=== PATIENT | male | born 1970 | race Caucasian/White ===

== ENCOUNTER 2020-06-18 13:26 | Inpatient (IN) ==
[~2020-06-18 13:26] MED LIST: ZOSYN 3.375 GM x ONE DOSE over 30 miuntes IV
[2020-06-18] MEDS ORDERED: NS 0.9% 1000 ml BAG 1,000 ML IV ONE (14:06)
[2020-06-18 14:16] LABS: ABS Basophils 0.1 10^3/ul (0-0.2); ABS Lymphocytes 0.8 10^3/ul (1.0-4.8); ABS Monocytes 0.8 10^3/ul (0-0.8); ABS Neutrophils 15.8 10^3/ul (1.5-7.7); Eosinophil % 0.3 %; Hematocrit 38 % (42-52); Hemoglobin 12.9 g/dL (14.0-18.0); Lymphocyte % 4.5 %; Mean Corpuscular HGB Conc 34 g/dL (31-36); Mean Corpuscular Hemoglobin 28 pg (27-31); Mean Corpuscular Volume 84 fL (80-94); Mean Platelet Volume 8.1 fL (7.4-10.4); Platelet Count 595 10^3/uL (150-450); Red Blood Count 4.57 10^6 /uL (4.18-5.48); Red Cell Distribution Width 14 % (10-15); White Blood Count 17.5 10^3/uL (3.5-10.8)
[2020-06-18 14:41] LABS: Albumin 3.5 g/dL (3.2-5.2); Albumin/Globulin Ratio 0.8 (1-3); BUN/Creatinine Ratio 22.5 (8-20); C Reactive Protein 213.15 mg/L (<8.01); Calcium 9.3 mg/dL (8.6-10.3); EGFR Non-African American 90.1 (>60); Globulin 4.5 g/dL (2-4); Potassium 3.4 mmol/L (3.5-5.0); Total Bilirubin 0.7 mg/dL (0.2-1.0)
[2020-06-18 14:42] LABS: Troponin I 0.01 ng/mL (<0.03)
[2020-06-18] MEDS ORDERED: Iohexol 300 (CONTRAST) 10 ML SDV IV ONE (14:54)
[2020-06-18] MEDS ORDERED: Morphine 4 MG/ML VIAL (1 ml) IV ONE (14:57)
[2020-06-18] MEDS ORDERED: diPHENhydraMINE IV 50 MG/ML 1 ml VIAL (BENADRYL) IV ONE (15:11)
[2020-06-18] MEDS: Ondansetron 4 mg VIAL 2 MG/ML 2 ml VIAL IV ONE ×2 (15:37→16:21)
[2020-06-18] MEDS ORDERED: metroNIDAZOLE IV 500 MG/100ML 500 MG/100 ML BAG IVPB ONE (15:47)
[2020-06-18] MEDS ORDERED: Ciprofloxacin 400mg IVPREMIX 400 MG/200 ML BAG IVPB ONE (15:47)
[2020-06-18] MEDS ORDERED: Potassium Chlor 20 meq TAB.ER PO ONE (17:03)
[2020-06-18 17:33] LABS: INR 1.23 (0.82-1.09)
[2020-06-18] MEDS: Morphine 2 MG/ML SYRINGE IV PRN (17:52)
[2020-06-18] MEDS: NS 0.9% 1000 ml BAG 1,000 ML IV SCH (19:00)
[2020-06-18 20:35] LABS: Urine Appearance Clear; Urine Bilirubin Negative (Negative); Urine Blood Negative (Negative); Urine Color Yellow; Urine Glucose Negative (Negative); Urine Ketones Negative (Negative); Urine Nitrite Negative (Negative); Urine Protein Negative (Negative); Urine Urobilinogen Negative (Negative)
[2020-06-18 21:06] LABS: Urine Specific Gravity > 1.030 (1.010-1.030)
[2020-06-19] MEDS: Morphine 2 MG/ML SYRINGE IV PRN ×2 (00:10→17:14)
[2020-06-19] MEDS ORDERED: ZOSYN 3.375 GM x ONE DOSE over 30 miuntes IV (04:00)
[2020-06-19] MEDS: NS 0.9% 1000 ml BAG 1,000 ML IV SCH ×2 (06:01→22:33)
[2020-06-19] MEDS: Piperacillin/Tazobac ADVAN 3.375 GM in NS 0.9% 100 ml BAG 100 ML IV SCH ×2 (07:32→16:10)
[2020-06-19 07:37] LABS: BUN/Creatinine Ratio 17.3 (8-20); Calcium 8.3 mg/dL (8.6-10.3); EGFR African American 121.6 (>60); EGFR Non-African American 100.5 (>60); Magnesium 1.9 mg/dL (1.9-2.7); Potassium 3.4 mmol/L (3.5-5.0)
[2020-06-19] MEDS: Atomoxetine 60 MG CAP (NF) PO SCH (08:02)
[2020-06-19] MEDS: Cholecalciferol (VIT D3) 1,000 unit TAB PO SCH (08:09)
[2020-06-19 08:51] LABS: ABS Basophils 0.1 10^3/ul (0-0.2); ABS Eosinophils 0.1 10^3/ul (0-0.6); ABS Lymphocytes 1.2 10^3/ul (1.0-4.8); ABS Monocytes 1.2 10^3/ul (0-0.8); ABS Neutrophils 12.1 10^3/ul (1.5-7.7); Eosinophil % 0.4 %; Hematocrit 30 % (42-52); Hemoglobin 10.2 g/dL (14.0-18.0); Lymphocyte % 8.3 %; Mean Corpuscular HGB Conc 34 g/dL (31-36); Mean Corpuscular Hemoglobin 28 pg (27-31); Mean Corpuscular Volume 83 fL (80-94); Platelet Count 477 10^3/uL (150-450); Red Blood Count 3.65 10^6 /uL (4.18-5.48); Red Cell Distribution Width 14 % (10-15); White Blood Count 14.6 10^3/uL (3.5-10.8)
[2020-06-19] MEDS ORDERED: fentaNYL 100 mcg/2 ml 50 MCG/ML VIAL ONE (13:26)
[2020-06-19] MEDS ORDERED: Naloxone 0.4 mg VIAL 0.4 mg/ml 1 ml VIAL ONE (13:27)
[2020-06-19] MEDS ORDERED: Midazolam 2 mg/2 ml VIAL 1 mg/ml 2 ml VIAL (2 mg) ONE (14:08)
[2020-06-19] MEDS: Potassium Chlor 20 meq TAB.ER PO SCH ×2 (16:07→22:31)
[2020-06-19] MEDS: Ondansetron 4 mg VIAL 2 MG/ML 2 ml VIAL IV PRN (20:24)
[2020-06-20] MEDS: Piperacillin/Tazobac ADVAN 3.375 GM in NS 0.9% 100 ml BAG 100 ML IV SCH ×4 (00:42→23:44)
[2020-06-20 07:05] LABS: ABS Basophils 0.1 10^3/ul (0-0.2); ABS Eosinophils 0.1 10^3/ul (0-0.6); ABS Lymphocytes 1.5 10^3/ul (1.0-4.8); ABS Neutrophils 9.2 10^3/ul (1.5-7.7); Eosinophil % 0.7 %; Hematocrit 30 % (42-52); Hemoglobin 10.2 g/dL (14.0-18.0); Lymphocyte % 12.6 %; Mean Corpuscular HGB Conc 34 g/dL (31-36); Mean Corpuscular Hemoglobin 28 pg (27-31); Mean Corpuscular Volume 83 fL (80-94); Mean Platelet Volume 8.2 fL (7.4-10.4); Platelet Count 506 10^3/uL (150-450); Red Blood Count 3.63 10^6 /uL (4.18-5.48); Red Cell Distribution Width 15 % (10-15); White Blood Count 11.9 10^3/uL (3.5-10.8)
[2020-06-20 07:21] LABS: BUN/Creatinine Ratio 14.1 (8-20); Potassium 3.3 mmol/L (3.5-5.0)
[2020-06-20] MEDS: Atomoxetine 60 MG CAP (NF) PO SCH (09:29)
[2020-06-20] MEDS: Potassium Chlor 20 meq TAB.ER PO SCH ×2 (09:30→22:06)
[2020-06-20] MEDS: Cholecalciferol (VIT D3) 1,000 unit TAB PO SCH (09:30)
[2020-06-20] MEDS: Heparin 5000 UNITS/ML 1 mL VIAL SUBCUT SCH (22:07)
[2020-06-20] MEDS: Morphine 2 MG/ML SYRINGE IV PRN (23:45)
[2020-06-21 05:45] LABS: ABS Basophils 0.1 10^3/ul (0-0.2); ABS Eosinophils 0.1 10^3/ul (0-0.6); ABS Lymphocytes 1.8 10^3/ul (1.0-4.8); ABS Monocytes 0.8 10^3/ul (0-0.8); ABS Neutrophils 6.3 10^3/ul (1.5-7.7); Eosinophil % 1.1 %; Hematocrit 30 % (42-52); Hemoglobin 10.5 g/dL (14.0-18.0); Lymphocyte % 19.6 %; Mean Corpuscular HGB Conc 35 g/dL (31-36); Mean Corpuscular Hemoglobin 29 pg (27-31); Mean Corpuscular Volume 83 fL (80-94); Platelet Count 518 10^3/uL (150-450); Red Cell Distribution Width 14 % (10-15); White Blood Count 9.1 10^3/uL (3.5-10.8)
[2020-06-21 05:58] LABS: BUN/Creatinine Ratio 11.1 (8-20); Calcium 8.5 mg/dL (8.6-10.3); EGFR African American 121.6 (>60); EGFR Non-African American 100.5 (>60); Potassium 3.7 mmol/L (3.5-5.0)
[2020-06-21] MEDS: Cholecalciferol (VIT D3) 1,000 unit TAB PO SCH (09:06)
[2020-06-21] MEDS: Atomoxetine 60 MG CAP (NF) PO SCH (09:06)
[2020-06-21] MEDS: Heparin 5000 UNITS/ML 1 mL VIAL SUBCUT SCH ×2 (09:06→21:01)
[2020-06-21] MEDS: Piperacillin/Tazobac ADVAN 3.375 GM in NS 0.9% 100 ml BAG 100 ML IV SCH ×3 (09:06→23:40)
[2020-06-22 04:42] LABS: ABS Basophils 0.1 10^3/ul (0-0.2); ABS Eosinophils 0.2 10^3/ul (0-0.6); ABS Lymphocytes 2.1 10^3/ul (1.0-4.8); ABS Monocytes 0.9 10^3/ul (0-0.8); ABS Neutrophils 8.7 10^3/ul (1.5-7.7); Eosinophil % 1.5 %; Hematocrit 29 % (42-52); Hemoglobin 9.9 g/dL (14.0-18.0); Lymphocyte % 17.7 %; Mean Corpuscular HGB Conc 35 g/dL (31-36); Mean Corpuscular Hemoglobin 29 pg (27-31); Mean Corpuscular Volume 83 fL (80-94); Mean Platelet Volume 8.1 fL (7.4-10.4); Platelet Count 512 10^3/uL (150-450); Red Blood Count 3.45 10^6 /uL (4.18-5.48); Red Cell Distribution Width 14 % (10-15)
[2020-06-22 04:59] LABS: BUN/Creatinine Ratio 18.2 (8-20); Calcium 7.9 mg/dL (8.6-10.3); EGFR African American 96.4 (>60); EGFR Non-African American 79.7 (>60); Potassium 3.7 mmol/L (3.5-5.0)
[2020-06-22] MEDS: Piperacillin/Tazobac ADVAN 3.375 GM in NS 0.9% 100 ml BAG 100 ML IV SCH (08:56)
[2020-06-22] MEDS: Heparin 5000 UNITS/ML 1 mL VIAL SUBCUT SCH ×2 (08:57→21:05)
[2020-06-22] MEDS: Cholecalciferol (VIT D3) 1,000 unit TAB PO SCH (08:57)
[2020-06-22] MEDS: Atomoxetine 60 MG CAP (NF) PO SCH (09:08)
[2020-06-22] MEDS: Cefepime 2 GM in Dextrose 2 GM/50 ML BAG IV SCH (14:34)
[2020-06-22] MEDS: metroNIDAZOLE IV 500 MG/100ML 500 MG/100 ML BAG IVPB SCH ×2 (15:49→23:53)
[2020-06-23] MEDS: Cefepime 2 GM in Dextrose 2 GM/50 ML BAG IV SCH ×2 (02:10→15:25)
[2020-06-23 05:59] LABS: ABS Basophils 0.1 10^3/ul (0-0.2); ABS Eosinophils 0.3 10^3/ul (0-0.6); ABS Lymphocytes 2.3 10^3/ul (1.0-4.8); ABS Monocytes 0.9 10^3/ul (0-0.8); ABS Neutrophils 9.1 10^3/ul (1.5-7.7); Eosinophil % 2.1 %; Hematocrit 32 % (42-52); Hemoglobin 10.9 g/dL (14.0-18.0); Lymphocyte % 18.1 %; Mean Corpuscular HGB Conc 34 g/dL (31-36); Mean Corpuscular Hemoglobin 29 pg (27-31); Mean Corpuscular Volume 84 fL (80-94); Platelet Count 557 10^3/uL (150-450); Red Blood Count 3.84 10^6 /uL (4.18-5.48); Red Cell Distribution Width 14 % (10-15); White Blood Count 12.7 10^3/uL (3.5-10.8)
[2020-06-23 06:08] LABS: Potassium 4.5 mmol/L (3.5-5.0)
[2020-06-23 06:09] LABS: BUN/Creatinine Ratio 18.9 (8-20); Calcium 8.9 mg/dL (8.6-10.3); EGFR African American 107.6 (>60)
[2020-06-23] MEDS: Cholecalciferol (VIT D3) 1,000 unit TAB PO SCH (08:33)
[2020-06-23] MEDS: metroNIDAZOLE IV 500 MG/100ML 500 MG/100 ML BAG IVPB SCH ×2 (08:33→16:27)
[2020-06-23] MEDS: Heparin 5000 UNITS/ML 1 mL VIAL SUBCUT SCH ×2 (08:38→21:23)
[2020-06-23] MEDS: Atomoxetine 60 MG CAP (NF) PO SCH (08:41)
[2020-06-23 09:31] LABS: C Reactive Protein 30.18 mg/L (<8.01)
[2020-06-23] MEDS ORDERED: Iohexol 300 (CONTRAST) 10 ML SDV IV ONE (10:44)
[2020-06-23 12:05] LABS: Uric Acid 4.2 mg/dL (4.4-7.6)
[2020-06-23] MEDS ORDERED: Morphine 2 MG/ML SYRINGE IV PRN (15:35)
[2020-06-24] MEDS: metroNIDAZOLE IV 500 MG/100ML 500 MG/100 ML BAG IVPB SCH ×4 (00:25→23:25)
[2020-06-24] MEDS: cefTRIAXone 2 GM ADDV.VIAL 2 GM in NS 0.9% 100 ml BAG 100 ML IV SCH (07:57)
[2020-06-24] MEDS: Atomoxetine 60 MG CAP (NF) PO SCH (09:04)
[2020-06-24] MEDS: Cholecalciferol (VIT D3) 1,000 unit TAB PO SCH (09:20)
[2020-06-24] MEDS: Heparin 5000 UNITS/ML 1 mL VIAL SUBCUT SCH ×2 (09:22→20:52)
[2020-06-24] MEDS: Ondansetron 4 mg VIAL 2 MG/ML 2 ml VIAL IV PRN (10:36)
[2020-06-24 12:54] LABS: Hematocrit 42 % (42-52); Hemoglobin 13.6 g/dL (14.0-18.0); Mean Corpuscular HGB Conc 32 g/dL (31-36); Mean Corpuscular Hemoglobin 28 pg (27-31); Mean Corpuscular Volume 88 fL (80-94); Mean Platelet Volume 8.1 fL (7.4-10.4); Platelet Count 598 10^3/uL (150-450); Red Blood Count 4.81 10^6 /uL (4.18-5.48); Red Cell Distribution Width 15 % (10-15); White Blood Count 10.1 10^3/uL (3.5-10.8)
[2020-06-24 13:33] LABS: ABS Basophils 0.1 10^3/ul (0-0.2); ABS Eosinophils 0.2 10^3/ul (0-0.6); ABS Lymphocytes 1.6 10^3/ul (1.0-4.8); ABS Monocytes 0.7 10^3/ul (0-0.8); ABS Neutrophils 7.6 10^3/ul (1.5-7.7); Eosinophil % 1.8 %; Nucleated Red Blood Cells % 0.1
[2020-06-25] MEDS: metroNIDAZOLE IV 500 MG/100ML 500 MG/100 ML BAG IVPB SCH (07:49)
[2020-06-25 09:05] LABS: ABS Basophils 0.1 10^3/ul (0-0.2); ABS Eosinophils 0.2 10^3/ul (0-0.6); ABS Lymphocytes 1.5 10^3/ul (1.0-4.8); ABS Monocytes 0.8 10^3/ul (0-0.8); ABS Neutrophils 7.7 10^3/ul (1.5-7.7); Eosinophil % 1.5 %; Hematocrit 38 % (42-52); Hemoglobin 12.5 g/dL (14.0-18.0); Lymphocyte % 14.5 %; Mean Corpuscular HGB Conc 33 g/dL (31-36); Mean Corpuscular Hemoglobin 28 pg (27-31); Mean Corpuscular Volume 83 fL (80-94); Mean Platelet Volume 7.7 fL (7.4-10.4); Platelet Count 591 10^3/uL (150-450); Red Blood Count 4.49 10^6 /uL (4.18-5.48); Red Cell Distribution Width 15 % (10-15); White Blood Count 10.2 10^3/uL (3.5-10.8)
[2020-06-25] MEDS: cefTRIAXone 2 GM ADDV.VIAL 2 GM in NS 0.9% 100 ml BAG 100 ML IV SCH (09:29)
[2020-06-25] MEDS: Atomoxetine 60 MG CAP (NF) PO SCH (09:29)
[2020-06-25] MEDS: Cholecalciferol (VIT D3) 1,000 unit TAB PO SCH (09:33)
[2020-06-25] MEDS: Heparin 5000 UNITS/ML 1 mL VIAL SUBCUT SCH (09:33)
[2020-06-25 15:22] VITALS: BP 108/76
== END 2020-06-25 16:10 | disposition home or self-care (01) | DRG 244 ==
LOC: ED 13:26 → SSU 17:14
PROVIDERS: ADMIT Internal Medicine; ATTEND Internal Medicine